=== PATIENT | male | born 1970 | race Caucasian/White ===

== ENCOUNTER → 2022-02-05 | Outpatient (CLI) | payer MEDICAID ==
--- NOTE | 2022-02-05 10:34 | CT ---
EXAMINATION TYPE: CT right knee - [facility] Protocol DATE OF EXAM: 02/05/2022 HISTORY: Pre op planning CT DLP: 519.4 mGycm TECHNIQUE- CT of the right knee is performed as preprocedural planning. COMPARISON- none FINDINGS- There is hypertrophic arthropathy involving the knee joint with spurring and narrowing of joint space s. No erosive changes are seen. A most marked findings are seen involving the medial compartment of k nee joint in a pattern suggestive of osteoarthritis. There is an intraosseous lesion of the proximal diaphysis of the tibia measuring 1.8 cm. Mild superior narrowing of the hip joint noted. No erosive c hanges. Ankle mortise appears symmetric. IMPRESSION: 1. Osteoarthritis of the knee. 2. There is a intraosseous 1.8 cm lesion in the proximal diaphysis of the tibia recommend follow-up b one scan.
== END | disposition home or self-care (01) ==
LOC: RADCTMAIN 09:38
PROVIDERS: ATTEND Orthopaedic Surgery
DX: M17.11 Unilateral primary osteoarthritis, right knee (principal); M89.8X6 Other specified disorders of bone, lower leg

== ENCOUNTER → 2022-02-28 | Outpatient (CLI) | payer MEDICAID ==
[2022-02-28 11:30] LABS: INR 0.9 (<1.2); Partial Thromboplastin Time 25.5 sec (22.0-30.0); Prothrombin Time 9.6 sec (9.0-12.0)
[2022-02-28 15:08] LABS: HCT 43.7 % (39.6-50.0); HGB 14.6 g/dL (13.0-17.0); MCH 29.7 pg (27.0-32.0); MCHC 33.4 g/dL (32.0-37.0); MCV 88.8 fL (80.0-97.0); Mean Platelet Volume 11.7 fL (9.5-12.2); NRBC Per 100 WBC 0 /100 WBCS (0.0-0.0); Platelet Count 166 X 10*3/uL (140-440); RBC 4.92 X 10*6/uL (4.40-5.60); RDW 13.2 % (11.5-14.5); WBC 8.03 X 10*3/uL (4.50-10.00)
[2022-02-28 17:01] LABS: Appearance,Urine Clear (Clear); Bilirubin,Urine Negative (Negative); Blood,Urine Negative (Negative); Color,Urine Yellow (Yellow); Ketones,Urine Negative (Negative); Nitrite,Urine Negative (Negative); PH, Urine 5.5 (5.0-8.0); Specific Gravity,Urine 1.011 (1.001-1.030); Urobilinogen,Urine 0.2 (0.2,1.0)
[2022-02-28 17:24] LABS: ALT 44 U/L (10-49); AST 23 U/L (14-35); African American GFR (CKD) 118.4 (60.0-200.0); Albumin 4.4 g/dL (3.8-4.9); Albumin/Globulin Ratio 1.62 (1.60-3.17); Alkaline Phosphatase 53 U/L (41-126); BUN/Creat Ratio 12.88 Ratio (12.00-20.00); Calcium 9.1 mg/dL (8.7-10.3); Carbon Dioxide 23.8 mmol/L (20.0-27.5); Chloride 104 mmol/L (96-109); Globulin 2.7 g/dL (1.6-3.3); Glucose 98 mg/dL (70-110); Non-African American GFR(CKD) 102.1 (60.0-200.0); Potassium 4.5 mmol/L (3.5-5.5); Sodium 138 mmol/L (135-145); Total Bilirubin <0.15 mg/dL (0.30-1.20); Total Protein 7.1 g/dL (6.2-8.2)
== END | disposition home or self-care (01) ==
LOC: LABWHC1 09:57
PROVIDERS: ATTEND Orthopaedic Surgery
DX: Z01.818 Encounter for other preprocedural examination (principal); I44.4 Left anterior fascicular block; M17.11 Unilateral primary osteoarthritis, right knee; R94.31 Abnormal electrocardiogram [ECG] [EKG]
CPT/HCPCS: 36415; 80053; 81003; 85027; 85610; 85730; 87070; 93005

== ENCOUNTER 2022-03-08 05:35 | Day surgery (SDC) | payer MEDICAID ==
[2022-03-05 11:49] VITALS: BMI 30.1
[~2022-03-08 05:35] MED LIST: ROPIVACAINE 246.25 MG, EPINEPHrine 0.5 MG, KETOROLAC (30 mg/mL) 30 MG, cloNIDine HCL/PF... MISCELLANE PRN; ROPIVACAINE/EPI/CLONIDINE/KET 50 ML SYRINGE MISCELLANE PRN; TRANEXAMIC ACID IN NACL,ISO-OS 1,000 MG in SALINE 1 100ML.BAG IVPB PRN; VANCOMYCIN 1,500 MG in SODIUM CHLORIDE 0.9% 500 ML 500 ML IVPB PRN
[2022-03-08] MEDS ORDERED: HYDROmorphone 0.5 MG/0.5 ML SYRINGE IVP PRN (05:43)
[2022-03-08] MEDS ORDERED: LACTATED RINGERS 1,000 ML IV SCH (05:43)
[2022-03-08] MEDS ORDERED: DEXAMETHASONE SOD PHOSPHATE 4 MG/ML 1 ML VIAL IV ONE (05:43)
[2022-03-08] MEDS ORDERED: ONDANSETRON 4 MG/2 ML VIAL IVP ONE (05:43)
[2022-03-08] MEDS ORDERED: SCOPOLAMINE 1 MG/72 HR PATCH TRANSDERM ONE (05:43)
[2022-03-08] MEDS ORDERED: DOCUSATE 100 MG CAP PO PRN (06:00)
[2022-03-08] MEDS ORDERED: ACETAMINOPHEN TAB 500 MG TAB PO PRN (06:00)
[2022-03-08] MEDS ORDERED: KETOROLAC 15 MG/ML 1 ML VIAL IVP PRN (06:00)
[2022-03-08] MEDS ORDERED: oxyCODONE ER 10 MG TAB.ER.12H PO PRN (06:00)
[2022-03-08] MEDS ORDERED: ONDANSETRON 4 MG/2 ML VIAL IVP PRN (06:00)
[2022-03-08] MEDS ORDERED: DEXAMETHASONE SOD PHOSPHATE 10 MG/ML 1 ML VIAL IV PRN (06:00)
[2022-03-08] MEDS ORDERED: FAMOTIDINE 20 MG/2 ML VIAL IVP PRN (06:00)
[2022-03-08] MEDS ORDERED: LIDOCAINE 1% (10MG/ML) FOR IV START INTRADERMA ONE (07:01)
[2022-03-08] MEDS ORDERED: MIDAZOLAM 2 MG/2 ML VIAL IV ONE (07:12)
[2022-03-08] MEDS ORDERED: ROPIVACAINE 5 MG/ML 30 ML VIAL ONE ×2 (07:24)
[2022-03-08] MEDS ORDERED: PHENYLEPHRINE-0.9% NACL SYG 1,000 MCG/10 ML SYRINGE ONE (07:24)
[2022-03-08] MEDS ORDERED: ePHEDrine 50 MG/ML 1 ML VIAL ONE (07:24)
[2022-03-08] MEDS ORDERED: TRANEXAMIC ACID IN NACL,ISO-OS 1,000 MG/100 ML BAG ONE (07:24)
[2022-03-08] MEDS ORDERED: DEXAMETHASONE SOD PHOSPHATE 4 MG/ML 1 ML VIAL ONE ×2 (07:24)
[2022-03-08] MEDS ORDERED: MIDAZOLAM 2 MG/2 ML VIAL ONE (07:24)
[2022-03-08] MEDS ORDERED: fentaNYL (PF) 50 MCG/ML 2 ML AMP ONE (07:24)
[2022-03-08] MEDS ORDERED: GLYCOPYRROLATE 0.2 MG/ML 2 ML VIAL ONE (07:24)
[2022-03-08] MEDS ORDERED: ROCURONIUM 10 MG/ML (5 ML VIAL) IV ONE (07:24)
[2022-03-08] MEDS ORDERED: SODIUM CHLORIDE 0.9% (PF) 10 ML VIAL ONE (07:24)
[2022-03-08] MEDS ORDERED: SUCCINYLCHOLINE CHLORIDE 200 MG/10 ML VIAL IV ONE (07:24)
[2022-03-08] MEDS ORDERED: NEOSTIGMINE 1 MG/ML 10 ML VIAL ONE (07:24)
[2022-03-08] MEDS ORDERED: PROPOFOL 10 MG/ML 20 ML VIAL IV ONE (07:24)
[2022-03-08] MEDS ORDERED: LIDOCAINE 2% INJ 20 MG/ML (2 ML VIAL) ONE (07:24)
[2022-03-08] MEDS ORDERED: SODIUM CHLORIDE 0.9% 100 ML with ceFAZolin 2 GM IV ONE ×2 (08:00)
[2022-03-08 09:56] VITALS: TEMP 97.1
[2022-03-08 10:02] VITALS: RESP 16
--- NOTE | 2022-03-08 10:05 | P.OP ---
Date of Procedure: 03/08/22 Preoperative Diagnosis: Right knee medial compartment arthritis Postoperative Diagnosis: Same Procedure(s) Performed: Right knee medial unicompartmental arthroplasty Implants: 1. [place] JUSTIN Restoris MCK Size #4 Femur 2. [place] JUSTIN Restoris MCK Size #4 Tibia 3. [place] Justin X3 Uni Poly Size #4, 8-mm poly Anesthesia: GETA, regional Surgeon: Jay Jiang Electrolysis Operator #1: Yeny Jasso Estimated Blood Loss (ml): 50 Pathology: none sent (Routine gross and/or histopathologic evaluation by a pathologist is not indicated. X-ray and intraoperative findings consistent with osteoarthritis) Condition: stable Disposition: PACU Indications for Procedure: I've and following the patient for his right knee. He failed nonsurgical treatment and requested proceeding with surgery. He had isolated arthritis on his x-rays in the medial compartment and when asked to isolate his pain he he pointed to the medial compartment of his knee. I recommended a medial unicompartmental arthroplasty. We discussed the pros and cons of this. After our discussion we also discussed the possibility of converting to a total knee replacement should he have arthritis diffusely throughout the knee intraoperatively. I met with the patient preoperatively in the office setting and discussed treatment of their symptomatic knee arthritis. They failed a long course of nonsurgical treatment and elected to proceed with an elective partial knee replacement. I discussed the potential risks and complications at length and gave them ample time to ask questions. Risks discussed included: risks from anesthesia, superficial site surgical infection, acute and/or chronic periprosthetic joint infection, delayed wound healing, drainage, wound necrosis, instability, stiffness, stiffness requiring manipulation and/or revision surgery, damage to local blood vessels or nerves, aseptic loosening of the implants, extensor mechanism issues including disruption, patellar maltracking, avascular necrosis etc., continued or worsened knee pain, progression of arthritis, generalized dissatisfaction with surgical outcome, need for revision surgery, an inability to regain preinjury level of function, DVT, PE, other medical complications, and possibly loss of life or limb. The patient voiced their understanding that while these are the most common complications other less common complications are possible. They provided both their verbal and wri tten consent to go forward with surgery. Operative Findings: Full-thickness cartilage loss in the medial femoral condyle and tibial plateau with peripheral osteophytes. No cartilage loss with full-thickness normal- appearing cartilage on the undersurface of the patella, trochlea of the femur, and lateral compartment. Description of Procedure: The patient was identified in preoperative holding and the correct operative extremity was verified and marked with a marker. I reviewed the consent form with the patient at length. All of their questions were answered. The patient was given a block by anesthesia. They were then brought back to the operating room. They were transferred onto the operating room table where a general anesthetic, preoperative antibiotics, and tranexamic acid were administered by anesthesia. A tourniquet was applied to the proximal aspect of the operative extremity. The contralateral extremity was padded under the heel and secured to the operating room table with a nonsterile blue towel and tape. The ipsilateral arm was carefully draped across the patient's chest and secured with a pillow and foam. A post was applied over the lateral aspect of the ipsilateral thigh and a bolster was placed under the ipsilateral foot. I verified that the operative extremity was stable and the knee was flexed to 90. The operative extremity was then placed in a leg beard, nonsterile drapes were applied, and the extremity was prepped and draped sterilely in the standard sterile fashion. Prior to starting surgery timeout was performed identifying the correct patient, operative extremity, and procedure. The leg was then elevated, exsanguinated with an Esmarch bandage, and the tourniquet was inflated. An anterior midline incision was made sharply with a scalpel. Once I had dissected deep to the superficial fascial layer medial and lateral flaps were elevated. A medial parapatellar arthrotomy was created. Upon opening the knee joint there isolated full-thickness cartilage loss in the medial compartment of the knee both on the femur and tibia. The remaining knee was free of any arthritic changes. The ACL was seen to be intact. The anterior horn of the medial meniscus were sharply released and a medial release was performed around the posterior medial corner of the knee to facilitate retractor placement. A small portion of the fat pad was removed just for visualization. 4 mm pins were then placed within the incision in the medial distal femur and proximal tibia. Arrays were applied to the pins and I verified they were completely tightened. The knee was then registered with the [id number] robot and manipulations in implant position were made to balance the knee and opitmize implant position. Using the Justin robotic saw and ameya all cuts were made in accordance with our plan. The knee was thoroughly irrigated and remnants of the medial meniscus were removed with electrocautery. Local anesthetic was then infiltrated around the joint capsule. Trial implants were then placed within the knee. Range of motion and collateral ligament tension was then evaluated. All trial components were then removed from the knee. The knee was thoroughly irrigated with pulsatile lavage. Cement was prepared via vacuum mixing in a bowl on the back table. I then hand pressurized cement into the femur and tibia and placed the implants beginning with the tibial base tray and poly liner, and femoral component. All extruded cement was removed including from the pin sites. Once the cement had hardened the knee was evaluated one final time with the final polyethylene liner in place. The knee had full extension and flexion and felt stable to varus and valgus stress throughout the arc of motion. The tourniquet was released and with the tourniquet down the patella tracked midline. All bleeders were controlled with electrocautery. The knee was thoroughly irrigated using 3 L of sterile saline and pulsatile lavage. The extensor mechanism was then reapproximated using pop off Vicryl sutures followed by a running barbed suture. The knee was then closed in layers with a 0 strata fix for the deep fascial layer, 2-0 strata fix for the superficial subcutaneous layer and Monocryl and Steri-Strips for the skin. A sterile dressing was applied. I verified that all instrument, sponge, and sharp counts were correct. The patient was then transferred off the operating room table, extubated, and brought to recovery having tolerated the procedure well. Yeny Jasso PA-C was required as a skilled assistant facility manager due to the complexity of the procedure for patient positioning, draping, retraction, placement of hardware, and closure of wound. PLAN: The patient can weight-bear as tolerated on the operative extremity. DVT prophylaxis with aspirin 81 mg twice a day based on preoperative risk stratification. The patient is going to discharge home as an outpatient. Follow-up in the office in 2 weeks for wound check and x-rays of the knee including an AP and lateral.
--- NOTE | 2022-03-08 10:12 | XR ---
EXAMINATION TYPE: XR knee limited RT DATE OF EXAM: 03/08/2022 10:08 AM INDICATION: Patient age:Male; 51 years old; Reason for study: post op; [facility]. COMPARISON: CT right knee 02/05/2022. TECHNIQUE: The Right knee(s) was examined in frontal and crosstable lateral projections. FINDINGS: Postsurgical changes from hemiarthroplasty involving the medial tibiofemoral joint. Hardw are appears intact with appropriate alignment. There is associated soft tissue edema and gas. Mild aria int space narrowing of the lateral tibiofemoral joint space. IMPRESSION: Postsurgical changes from hemiarthroplasty involving the medial tibiofemoral joint. Hardware appears intact with appropriate alignment.
[2022-03-08] MEDS ORDERED: HYDROcodone/APAP 5-325MG 1 EACH TAB ONE (10:41)
[2022-03-08] MEDS ORDERED: HYDROcodone/APAP 5-325MG 1 EACH TAB PO ONE (10:43)
[2022-03-08] MEDS ORDERED: LACTATED RINGERS 1,000 ML IV ONE (11:19)
[2022-03-08 12:00] VITALS: BP 112/64; PULSE 86
--- NOTE | 2022-03-10 19:10 | P.ANPRN ---
Procedure Note - Anesthesia - Nerve Block Performed Right Erector Spinae Single Time Out Performed: Yes Date of Procedure: 03/08/22 Procedure Start Time: 07:12 Procedure Stop Time: 07:15 Location of Patient: PreOp Indication: Acute Post-Operative Pain, Requested by Surgeon Sedation Type: Sedate with meaningful contact maintained Preparation: Sterile Prep Position: Prone Needle Types: Pajunk Needle Gauge: 21 Ultrasound used to visualize needle placement: Yes Ultrasound used to observe medication spread: Yes Blood Aspirated: No Pain Paresthesia on Injection Noted: No Resistance on Injection: Normal Image Stored and Saved: Yes Events: Uneventful and Well Tolerated (ropi .5% 15cc plus ns 10cc plus dexamethasone 4mg)
--- NOTE | 2022-03-10 19:12 | P.ANPRN ---
Procedure Note - Anesthesia - Nerve Block Performed Right Adductor Canal Single Time Out Performed: Yes Date of Procedure: 03/08/22 Procedure Start Time: 07:12 Procedure Stop Time: 07:15 Location of Patient: PreOp Indication: Acute Post-Operative Pain, Requested by Surgeon Sedation Type: Sedate with meaningful contact maintained Preparation: Sterile Prep Position: Supine Needle Types: Pajunk Needle Gauge: 21 Ultrasound used to visualize needle placement: Yes Ultrasound used to observe medication spread: Yes Blood Aspirated: No Pain Paresthesia on Injection Noted: No Resistance on Injection: Normal Image Stored and Saved: Yes Events: Uneventful and Well Tolerated (Ropivacaine 0.5% 20 mL plus dexamethasone 4 mg)
--- NOTE | 2022-03-10 19:14 | P.ANPRN ---
Procedure Note - Anesthesia - Nerve Block Performed Right Ameliack Single Time Out Performed: Yes Date of Procedure: 03/08/22 Procedure Start Time: 07:16 Procedure Stop Time: 07:18 Location of Patient: PreOp Indication: Acute Post-Operative Pain, Requested by Surgeon Sedation Type: Sedate with meaningful contact maintained Preparation: Sterile Prep Position: Supine Needle Types: Pajunk Needle Gauge: 21 Ultrasound used to visualize needle placement: Yes Ultrasound used to observe medication spread: Yes Blood Aspirated: No Pain Paresthesia on Injection Noted: No Resistance on Injection: Normal Image Stored and Saved: Yes Events: Uneventful and Well Tolerated (Ropivacaine 0.5% 20 mL plusDexamethasone 4 mg)
== END 2022-03-08 12:40 | disposition home health service (06) ==
LOC: OR 05:35
PROVIDERS: ATTEND Orthopaedic Surgery
DX: M17.11 Unilateral primary osteoarthritis, right knee (principal); M25.761 Osteophyte, right knee; K21.9 Gastro-esophageal reflux disease without esophagitis; G89.18 Other acute postprocedural pain; Z88.0 Allergy status to penicillin; Z87.891 Personal history of nicotine dependence
CPT/HCPCS: 97530; 97161; 64447; 64461; 64999; 76942; 73560; C1776; C1713; J2250; J3370; J0330; J1100 ×2; J2710; J0690; J2405; J3010; J2795; J1885; J2370; J2704; J2001

== ENCOUNTER 2022-04-05 17:30 | Observation (INO) | payer MEDICAID ==
[2022-04-05] MEDS ORDERED: VANCOMYCIN IV PER PHARMACY 1 EACH MISC MISCELLANE PRN (17:55)
[2022-04-05] MEDS ORDERED: VANCOMYCIN 1,500 MG in SODIUM CHLORIDE 0.9% 500 ML 500 ML IVPB STA (18:08)
[2022-04-05 20:32] LABS: Basophils # (A) 0.1 k/uL (0-0.2); Basophils % (A) 1 %; Eosinophils # (A) 0.3 k/uL (0-0.7); Eosinophils % (A) 4 %; HGB 14.9 gm/dL (13.0-17.5); Lymphocytes # (A) 3.4 k/uL (1.0-4.8); Lymphocytes % (A) 37 %; MCH 30.3 pg (25.0-35.0); MCHC 34.6 g/dL (31.0-37.0); MCV 87.5 fL (80.0-100.0); Mean Platelet Volume 9.8; Monocytes # (A) 0.5 k/uL (0-1.0); Monocytes % (A) 6 %; Neutrophils # (A) 4.8 k/uL (1.3-7.7); Neutrophils % (A) 52 %; Platelet Count 148 k/uL (150-450); RBC 4.91 m/uL (4.30-5.90); RDW 13.2 % (11.5-15.5); WBC 9.2 k/uL (3.8-10.6)
[2022-04-05 20:48] LABS: ALT 51 U/L (4-49); AST 29 U/L (17-59); African American GFR (CKD) >90 (>60 ml/min/1.73 sqM); Albumin 4.5 g/dL (3.5-5.0); Alkaline Phosphatase 43 U/L (38-126); Anion Gap 8 mmol/L; Blood Urea Nitrogen 12 mg/dL (9-20); C Reactive Protein 1.4 mg/dL (<1.0); Calcium 9.1 mg/dL (8.4-10.2); Carbon Dioxide 25 mmol/L (22-30); Chloride 109 mmol/L (98-107); Glucose 91 mg/dL (74-99); Non-African American GFR(CKD) >90 (>60 ml/min/1.73 sqM); Potassium 4.4 mmol/L (3.5-5.1); Sodium 142 mmol/L (137-145); Total Bilirubin 0.3 mg/dL (0.2-1.3); Total Protein 7.4 g/dL (6.3-8.2)
[2022-04-05 22:47] LABS: Erythrocyte Sedimentation Rate 14 mm/hr (0-15)
--- NOTE | 2022-04-05 22:56 | ED ---
Extremity Problem HPI - General Chief complaint: Extremity Problem,Nontraumatic Stated complaint: sent by pcp for rt knee surgery Source: patient, family Mode of arrival: ambulatory Limitations: no limitations - History of Present Illness Initial comments: 51-year-old male with right knee partial arthroplasty who presents to the emergency department under the direction of Dr. Jiang. He had surgery on March 08. Reports that for the past week he has had some redness and swelling to the anterior knee with redness around his incision. No dehiscence. He went to the office today where Dr. Jiang aspirated his knee. Recommended that the patient come to the emergency department for evaluation of prepatellar cellulitis versus joint sepsis. Patient able to ambulate and range of motion of the knee without significant pain. He denies any chest pain or shortness of b reath. No fevers. No pustular drainage from the site. No other alleviating, precipitating or modifying factors - Related Data Home Medications Medication Instructions Recorded Confirmed HYDROcodone/APAP 5-325MG [[place] 1 tab PO Q6HR PRN 04/05/22 04/05/22 5-325] Ibuprofen [Motrin] 800 mg PO Q8H PRN 04/05/22 04/05/22 Previous Rx's Medication Instructions Recorded Aspirin 81 mg PO BID 30 Days #60 tab 03/08/22 Diclofenac Sodium [Voltaren] 75 mg PO BID 30 Days #60 tab 03/08/22 Docusate [Colace] 100 mg PO BID #60 capsule 03/08/22 Omeprazole 40 mg PO DAILY 30 Days #30 cap 03/08/22 Allergies Allergy/AdvReac Type Severity Reaction Status Date / Time Penicillins Allergy Rash/Hives Verified 04/05/22 22:08 meloxicam AdvReac Hallucinati Verified 04/05/22 22:08 ons Review of Systems ROS Statement: Those systems with pertinent positive or pertinent negative responses have been documented in the HPI. ROS Other: All systems not noted in ROS Statement are negative. Past Medical History Past Medical History: Osteoarthritis (OA) History of Any Multi-Drug Resistant Organisms: None Reported Past Surgical History: Joint Replacement, Orthopedic Surgery Additional Past Surgical History / Comment(s): RT KNEE SCOPE. EYE SURGERY BABY Past Anesthesia/Blood Transfusion Reactions: No Reported Reaction Past Psychological History: No Psychological Hx Reported Smoking Status: Former smoker - Past Family History Mother Family Medical History: No Reported History General Exam Limitations: no limitations Course Vital Signs 04/05/22 18:07 Temperature 97.9 F Pulse Rate 84 Respiratory 20 Rate Blood Pressure 171/90 Medical Decision Making - Medical Decision Making Was pt. sent in by a medical professional or institution? @ -[by JOLYNN Smith, ENROBING MACHINE FEEDER, urgent care, hospital, or skilled nursing] Did you speak to anyone other than the patient for history? @ -[EMS, parent, family, police, friend?] Did you review nursing and triage notes? @ -[agree or disagree, why?] Were old charts reviewed? @ -[outside hosp., previous admissions, EMS record, old EKG, old radiological studies, urgent care reports/EKGs, skilled nursing records?] Differential Diagnosis? @ -[chest pain, altered mental status abdominal pain women, abdominal pain men, vaginal bleeding, weakness, fever, dyspnea, syncope, headache, dizziness, GI bleed, back pain, seizure] EKG interpreted by me (3pts min.)? @ -[none] X-rays interpreted by me (1pt min.)? @ -[none] CT interpreted by me (1pt min.)? @ -[none] U/S interpreted by me (1pt. min.)? @ -[none] What testing was considered but not performed? (CT, X-rays, U/S, labs)? Why? @ [CT, X-rays, U/S, labs? Why?] What meds were considered but not given? Why? @ -[none] Did you discuss the management of the patient with other professionals? @ -[professionals i.e. , JOLYNN, ENROBING MACHINE FEEDER, Lab, RT, Psych Nurse, Process Mold Technician, Lock And Dam Equipment Repairer, Teacher, Aircraft Engine Mechanic Supervisor, telephonic nurse case manager? Give summary] Did you reconcile home meds? @ -[none] Was smoking cessation discussed for >3mins.? @ -[none] Was critical care preformed (if so, how long)? @ -[none] Were there social determinants of health that impacted care today? How? (Homelessness, low income, unemployed, alcoholism, drug addiction, transportation, low edu. Level, literacy, decrease access to med. care, intermediate, rehab)? @ -[Homelessness, low income, unemployed, alcoholism, drug addiction, transportation, low edu. Level, literacy, decrease access to med. care, intermediate, rehab?] Was there de-escalation of care discussed even if they declined? (Discuss DNR or withdrawal of care, Hospice)? @ -[Discuss DNR or withdrawal of care, Hospice?] What co-morbidities impacted this encounter? (DM, HTN, Smoking, COPD, CAD, Cancer, CVA, Hep., AIDS, mental health diagnosis, sleep apnea, morbid obesity)? @ -[DM, HTN, Smoking, COPD, CAD, Cancer, CVA, Hep., AIDS, mental health diagnosis, sleep apnea, morbid obesity?] Was patient admitted / discharged? @Upon arrival the patient was placed into room 11. A thorough history and physical exam was performed. Laboratory studies are conducted. He does arrive with his joint aspiration which is sent for cell count and culture. Patient will be admitted to Dr. Jiang. Blood cultures obtained. Patient was given Rocephin and Vanco. Currently awaiting a bed on the floor in stable condition Undiagnosed new problem with uncertain prognosis? @ -[none] Drug Therapy requiring intensive monitoring for toxicity (Heparin, Nitro, Insulin, Cardizem)? @ -[none] Were any procedures done? @ -[none] Diagnosis/symptom? @ -[default] Acute, or Chronic, or Acute on Chronic? @ -[default] Uncomplicated (without systemic symptoms) or Complicated (systemic symptoms)? @ -[default] Side effects of treatment? @ -[none] Exacerbation, Progression, or Severe Exacerbation] @ -[no] Poses a threat to life or bodily function? @ -[no] - Lab Data Result diagrams: 04/05/22 20:07 04/05/22 20:07 Lab Results 04/05/22 04/05/22 04/05/22 Range/Units 20:07 20:07 20:07 WBC 9.2 (3.8-10.6) k/uL RBC 4.91 (4.30-5.90) m/uL Hgb 14.9 (13.0-17.5) gm/dL Hct 43.0 (39.0-53.0) % MCV 87.5 (80.0-100.0) fL MCH 30.3 (25.0-35.0) pg MCHC 34.6 (31.0-37.0) g/dL RDW 13.2 (11.5-15.5) % Plt Count 148 L (150-450) k/uL MPV 9.8 Neutrophils % 52 % Lymphocytes % 37 % Monocytes % 6 % Eosinophils % 4 % Basophils % 1 % Neutrophils # 4.8 (1.3-7.7) k/uL Lymphocytes # 3.4 (1.0-4.8) k/uL Monocytes # 0.5 (0-1.0) k/uL Eosinophils # 0.3 (0-0.7) k/uL Basophils # 0.1 (0-0.2) k/uL ESR 14 (0-15) mm/hr D-Dimer (<0.60) mg/L FEU Sodium 142 (137-145) mmol/L Potassium 4.4 (3.5-5.1) mmol/L Chloride 109 H (98-107) mmol/L Carbon Dioxide 25 (22-30) mmol/L Anion Gap 8 mmol/L BUN 12 (9-20) mg/dL Creatinine 0.88 (0.66-1.25) mg/dL Est GFR (CKD-EPI)AfAm >90 (>60 ml/min/1.73 sqM) Est GFR (CKD-EPI)NonAf >90 (>60 ml/min/1.73 sqM) Glucose 91 (74-99) mg/dL Plasma Lactic Acid Salbador 1.1 (0.7-2.0) mmol/L Calcium 9.1 (8.4-10.2) mg/dL Total Bilirubin 0.3 (0.2-1.3) mg/dL AST 29 (17-59) U/L ALT 51 H (4-49) U/L Alkaline Phosphatase 43 (38-126) U/L C-Reactive Protein 1.4 H (<1.0) mg/dL Total Protein 7.4 (6.3-8.2) g/dL Albumin 4.5 (3.5-5.0) g/dL 04/05/22 Range/Units 20:07 WBC (3.8-10.6) k/uL RBC (4.30-5.90) m/uL Hgb (13.0-17.5) gm/dL Hct (39.0-53.0) % MCV (80.0-100.0) fL MCH (25.0-35.0) pg MCHC (31.0-37.0) g/dL RDW (11.5-15.5) % Plt Count (150-450) k/uL MPV Neutrophils % % Lymphocytes % % Monocytes % % Eosinophils % % Basophils % % Neutrophils # (1.3-7.7) k/uL Lymphocytes # (1.0-4.8) k/uL Monocytes # (0-1.0) k/uL Eosinophils # (0-0.7) k/uL Basophils # (0-0.2) k/uL ESR (0-15) mm/hr D-Dimer 1.30 H (<0.60) mg/L FEU Sodium (137-145) mmol/L Potassium (3.5-5.1) mmol/L Chloride (98-107) mmol/L Carbon Dioxide (22-30) mmol/L Anion Gap mmol/L BUN (9-20) mg/dL Creatinine (0.66-1.25) mg/dL Est GFR (CKD-EPI)AfAm (>60 ml/min/1.73 sqM) Est GFR (CKD-EPI)NonAf (>60 ml/min/1.73 sqM) Glucose (74-99) mg/dL Plasma Lactic Acid Salbador (0.7-2.0) mmol/L Calcium (8.4-10.2) mg/dL Total Bilirubin (0.2-1.3) mg/dL AST (17-59) U/L ALT (4-49) U/L Alkaline Phosphatase (38-126) U/L C-Reactive Protein (<1.0) mg/dL Total Protein (6.3-8.2) g/dL Albumin (3.5-5.0) g/dL Disposition Clinical Impression: Cellulitis of right knee Disposition: ADMITTED IP TO THIS [facility] Condition: Stable Is patient prescribed a controlled substance at d/c from ED?: No Time of Disposition: 22:56 Decision to Admit Reason: Admit from EC Decision Date: 04/05/22 Decision Time: 22:56
[2022-04-05] MEDS ORDERED: NALOXONE 0.4 MG/ML 1 ML VIAL IV PRN (22:57)
[2022-04-05] MEDS ORDERED: ACETAMINOPHEN TAB 325 MG TAB PO PRN (22:57)
[2022-04-06] MEDS: VANCOMYCIN 1,500 MG in SODIUM CHLORIDE 0.9% 500 ML 500 ML IVPB SCH ×2 (04:40→13:45)
--- NOTE | 2022-04-06 06:34 | XR ---
EXAMINATION TYPE: XR knee limited RT DATE OF EXAM: 04/06/2022 CLINICAL HISTORY: Postoperative pain. TECHNIQUE: Frontal and lateral views of the right knee are obtained. COMPARISON: Prior right knee x-ray March 08, 2022. FINDINGS: There is no acute fracture/dislocation evident in right knee. Surgical changes from right knee ELAINE-plasty procedure is redemonstrated and satisfactory in position. Mild to moderate narrowing patellofemoral compartment is again seen. Mild to moderate diffuse subcutaneous edema anteriorly rem ains present. IMPRESSION: As above. No significant change from prior.
--- NOTE | 2022-04-06 08:00 | P.HPOR ---
History of Present Illness H&P Date: 04/06/22 This patient is a 51-year-old male who is status post right medial unicompartmental knee arthroplasty on 03/08/[address] Jiang. The patient presented to the office yesterday with complaints about a week of redness, swelling, drainage from his incision. Dr. Jiang evaluated the patient yesterday and advised patient presented to the emergency department to be admitted with plans for surgical I&D of the right knee. Patient's knee was aspirated in the office yesterday. No additional complaints at this time. Past Medical History Past Medical History: Osteoarthritis (OA) History of Any Multi-Drug Resistant Organisms: None Reported Past Surgical History: Joint Replacement, Orthopedic Surgery Additional Past Surgical History / Comment(s): RT KNEE SCOPE. EYE SURGERY BABY Past Anesthesia/Blood Transfusion Reactions: No Reported Reaction Past Psychological History: No Psychological Hx Reported Smoking Status: Former smoker - Past Family History Mother Family Medical History: No Reported History Medications and Allergies Home Medications Medication Instructions Recorded Confirmed Type Aspirin 81 mg PO BID 30 Days #60 tab 03/08/22 04/05/22 Rx Diclofenac Sodium [Voltaren] 75 mg PO BID 30 Days #60 tab 03/08/22 04/05/22 Rx Docusate [Colace] 100 mg PO BID #60 capsule 03/08/22 04/05/22 Rx Omeprazole 40 mg PO DAILY 30 Days #30 cap 03/08/22 04/05/22 Rx HYDROcodone/APAP 5-325MG [[place] 1 tab PO Q6HR PRN 04/05/22 04/05/22 History 5-325] Ibuprofen [Motrin] 800 mg PO Q8H PRN 04/05/22 04/05/22 History Allergies Allergy/AdvReac Type Severity Reaction Status Date / Time Penicillins Allergy Rash/Hives Verified 04/05/22 22:08 meloxicam AdvReac Hallucinati Verified 04/05/22 22:08 ons Physical Examination Patient examined by Dr. Jiang. On inspection of the right anterior knee, there is a healing incision with mild surrounding erythema. No active drainage. There is superficial breakdown in the middle third and distal third of the incision. No exposed tendon or fascia. No fluctuance. There is a moderate effusion. There is minimal pain with passive range of motion of the knee. Motor and sensory function intact RLE. RLE warm and well perfused. Results - Labs Labs: Abnormal Lab Results - Last 24 Hours (Table) 04/05/22 04/05/22 04/05/22 Range/Units 20:07 20:07 20:07 Plt Count 148 L (150-450) k/uL D-Dimer 1.30 H (<0.60) mg/L FEU Chloride 109 H (98-107) mmol/L ALT 51 H (4-49) U/L C-Reactive Protein 1.4 H (<1.0) mg/dL H & H 04/05/22 Range/Units 20:07 Hgb 14.9 (13.0-17.5) gm/dL Hct 43.0 (39.0-53.0) % Result Diagrams: 04/05/22 20:07 04/05/22 20:07 Assessment and Plan Assessment: Status-post right unicompartmental knee arthroplasty on 03/08/22. Cellulitis Rule-out rick-prosthetic joint infection Plan: - Recommend I&D of the right knee with wound vac application today. Further recommendations pending surgical findings and aspiration results.
[2022-04-06] MEDS ORDERED: LACTATED RINGERS 1,000 ML IV ONE ×2 (08:06→08:40)
[2022-04-06] MEDS ORDERED: PROPOFOL 10 MG/ML 20 ML VIAL IV ONE (08:06)
[2022-04-06] MEDS ORDERED: SUCCINYLCHOLINE CHLORIDE 200 MG/10 ML VIAL IV ONE (08:06)
[2022-04-06] MEDS ORDERED: MIDAZOLAM 2 MG/2 ML VIAL ONE (08:06)
[2022-04-06] MEDS ORDERED: fentaNYL (PF) 50 MCG/ML 2 ML AMP ONE (08:06)
[2022-04-06] MEDS ORDERED: SODIUM CHLORIDE 0.9% 50 ML with ceFAZolin 2,000 MG IV ONE ×2 (08:30)
[2022-04-06] MEDS ORDERED: HYDROmorphone 0.5 MG/0.5 ML SYRINGE IVP PRN ×2 (09:12)
[2022-04-06] MEDS ORDERED: ONDANSETRON 4 MG/2 ML VIAL IVP PRN (09:12)
[2022-04-06] MEDS ORDERED: hydrOXYzine pamoate 25 MG CAP PO PRN (09:12)
[2022-04-06] MEDS ORDERED: HYDROmorphone 1 MG/ML 1 ML SYRINGE IVP PRN (09:12)
[2022-04-06] MEDS ORDERED: HYDROcodone/APAP 5-325MG 1 EACH TAB PO PRN ×2 (09:12)
[2022-04-06] MEDS ORDERED: LACTATED RINGERS 1,000 ML IV SCH (09:15)
[2022-04-06] MEDS ORDERED: HYDROmorphone 0.5 MG/0.5 ML SYRINGE IVP ONE ×3 (09:16→09:35)
--- NOTE | 2022-04-06 09:23 | P.OP ---
Date of Procedure: 04/06/22 Preoperative Diagnosis: 1. History of right unicompartmental knee arthroplasty 4 weeks ago 2. Superficial wound dehiscence 3. History of cigarette smoking, currently not smoking per patient Postoperative Diagnosis: Same Procedure(s) Performed: Superficial right knee irrigation and debridement (excisional debridement of nonviable skin and subcutaneous tissue down to fascia with a scalpel), closure of wound, and application of negative pressure incision over wound VAC right knee (20 cm) Anesthesia: SHADI Surgeon: Jay Jiang Tree Doctor #1: Yeny Jasso Estimated Blood Loss (ml): 10 IV fluids (ml): 500 Pathology: none sent Condition: stable Disposition: PACU Indications for Procedure: The patient is a very pleasant 51-year-old male who is a former smoker and quit prior to having an elective unicompartmental arthroplasty 4 weeks ago. He was doing well until just recently when he developed a superficial wound breakdown and a small amount of drainage from his wounds. He was seen in the office by me yesterday and was found to have superficial breakdown over the middle and distal third of his incision with surrounding erythema but no active drainage. His knee was aspirated and clear red tinged fluid was aspirated. There was no purulence. The cell count on the fluid was 300 nucleated cells with 85% PMNs, well below the threshold of 10,000 nucleated cells being suggestive of early infection. My recommendation to the patient and his was to admit the patient overnight for IV antibiotics and taken to the operating room for scar excision superficial debridement and exploration of his wound. We discussed that if the wound was superficial we would just perform an irrigation and debridement, closure, and wound VAC application, but if the wound tracked down to the joint we are perform a DAIR procedure and polyethylene exchange. The patient and his understand this. They understand the potential risks and complications including continued wound issues, infection of a periprosthetic joint infection, and need for revision. He was strongly encouraged to continue refraining from smoking. Operative Findings: Superficial breakdown of the incision with no extension to the joint. The capsule and retinaculum were intact. Description of Procedure: Patient was identified in preoperative holding and the correct leg was marked with my initials. I reviewed the consent form with the patient. All his questions were answered. The patient was then brought back to the operating room. He was positioned on the or table where general anesthetic and preoperative antibiotics were given. A tourniquet was applied the proximal aspect of the right leg. The left leg was secured to the OR table with foam and tape. The right leg was then prepped and draped in the standard sterile fashion. Prior to starting surgery timeout was performed identifying the correct patient, operative extremity, and procedure. The patient's leg was then elevated, exsanguinated with an Esmarch bandage, and the tourniquet was inflated to 250 mmHg. I began by outlining his prior scar with a surgical pen excising out the areas of superficial dehiscence. Skin incision was made with a scalpel and the open wounds were excised with a scalpel back to healthy bleeding tissue. The superficial fascia was incised. The capsule was found to be intact and there was no evidence of communication or drainage. The wound appeared clean with no purulence. The wound was thoroughly irrigated with 3 L of sterile saline using cystoscopy tubing. The incision was then carefully closed in layers and the skin incision was reinforced with 3-0 nylon mattress sutures. An incisional wound VAC was placed over the incision which measured 20 cm. Web roll and an García wrap were applied over the knee followed by a knee immobilizer. I verified that all instrument, sponge, and sharp counts were correct. The patient was then awoken from his anesthetic, transferred to a gurney, and brought to recovery having tolerated the procedure well. Plan: The patient is going to discharge home later today as an outpatient. He can weight-bear as tolerated on his right leg. I would like to leave the knee immobilizer in place to take tension off of his incision. The García wrap and wound VAC will be left in place. He'll be discharged home on doxycycline for prophylaxis until his incision heals. We will closely follow the fluid cultures. We have also sent a urine and serum nicotine and cotinine level. He was strongly encouraged to continue refraining from smoking. He will follow-up in the office in 1 week for a wound check.
[2022-04-06 12:57] VITALS: RESP 16
[2022-04-06 14:32] VITALS: BP 129/77; PULSE 81; TEMP 98.7
[2022-04-07] MEDS ORDERED: VANCOMYCIN TROUGH DUE 1 EACH MISC MISCELLANE ONE (11:00)
[2022-04-09 08:55] LABS: Cotinine 250.8 ng/mL (<2.0); Nicotine 3.6 ng/mL (<2.0)
--- NOTE | 2022-04-09 12:52 | P.DS ---
Providers Date of admission: 04/05/22 22:58 Expected date of discharge: 04/06/22 Attending physician: Jay Jiang Primary care physician: Joe Covington [facility] Course: LATE ENTRY FROM 04/06/22- This is a 51-year-old male who is status-post right unicompartmental knee arthroplasty about 4 weeks ago. Patient was doing well in the postoperative period until recently, when he presented to the office yesterday with sup erficial wound breakdown and a small amount of drainage. A knee aspiration followed by formal I&D of the right knee was recommended. Patient underwent a superficial right knee irrigation and debridement with wound VAC application on 04/06/22. The procedure was performed without complication or sequelae. Patient will discharge home this afternoon, after receiving 1 dose of postoperative IV antibiotics. He will be discharged home on oral antibiotics. Patient is discharged to rehab today in good condition, pending medical clearance. Patient will follow-up with Dr. Jiang in the office on 04/11/22. patient should leave the wound VAC in place until follow-up in the office. Patient Condition at Discharge: Stable Plan - Discharge Summary New Discharge Prescriptions: New Docusate [Colace] 100 mg PO BID #60 capsule Doxycycline Monohydrate 100 mg PO BID 14 Days #28 cap HYDROcodone/APAP 5-325MG [[place] 5-325] 1 tab PO Q6HR PRN 7 Days #20 tab PRN Reason: Pain No Action Docusate [Colace] 100 mg PO BID #60 capsule Omeprazole 40 mg PO DAILY 30 Days #30 cap Ibuprofen [Motrin] 800 mg PO Q8H PRN PRN Reason: Pain Aspirin 81 mg PO BID 30 Days #60 tab Diclofenac Sodium [Voltaren] 75 mg PO BID 30 Days #60 tab HYDROcodone/APAP 5-325MG [[place] 5-325] 1 tab PO Q6HR PRN PRN Reason: Pain Discharge Medication List Aspirin 81 mg PO BID 30 Days #60 tab 03/08/22 [Rx] Diclofenac Sodium [Voltaren] 75 mg PO BID 30 Days #60 tab 03/08/22 [Rx] Docusate [Colace] 100 mg PO BID #60 capsule 03/08/22 [Rx] Omeprazole 40 mg PO DAILY 30 Days #30 cap 03/08/22 [Rx] HYDROcodone/APAP 5-325MG [[place] 5-325] 1 tab PO Q6HR PRN 04/05/22 [History] Ibuprofen [Motrin] 800 mg PO Q8H PRN 04/05/22 [History] Docusate [Colace] 100 mg PO BID #60 capsule 04/06/22 [Rx] Doxycycline Monohydrate 100 mg PO BID 14 Days #28 cap 04/06/22 [Rx] HYDROcodone/APAP 5-325MG [[place] 5-325] 1 tab PO Q6HR PRN 7 Days #20 tab 04/06/22 [Rx] Follow up Appointment(s)/Referral(s): Joe Covington MD [Primary Care Provider] - 1-2 days Jay Jiang MD [Medical Doctor] - 04/11/22 (Patient to make own follow- up appt. for this 04/11/22) Patient Instructions/Handouts: Doxycycline (By mouth), Hydrocodone/Acetaminophen (By mouth), Laxative, Stool Softeners (By mouth), Knee Immobilizer (DC), Incision and Drainage (DC) Activity/Diet/Wound Care/Special Instructions: Weight bear to tolerance on operative extremity. Keep knee immobilizer in place for 48 hours post-operatively. After 48 hours, may remove knee immobilizer. Keep SIGIFREDO wrap, wound vac in place until follow-up appointment in the office. Take pain medications as needed. Take antibiotics as prescribed. Follow-up at [facility] on 04/11/21. Call the office with any questions or concerns, No driving Discharge Disposition: HOME SELF-CARE
== END 2022-04-06 15:23 | disposition home or self-care (01) ==
LOC: EC 17:30 → 4SSUR 22:58 → 5NMEDONC 04-06 08:14
PROVIDERS: ADMIT Orthopaedic Surgery; ATTEND Orthopaedic Surgery
DX: T81.31XA Disruption of external operation (surgical) wound, not elsewhere classified, initial encounter (principal); L03.115 Cellulitis of right lower limb; M19.90 Unspecified osteoarthritis, unspecified site; Z79.82 Long term (current) use of aspirin; Z79.1 Long term (current) use of non-steroidal anti-inflammatories (NSAID); Z79.899 Other long term (current) drug therapy; Z88.0 Allergy status to penicillin; Z88.6 Allergy status to analgesic agent; Z96.651 Presence of right artificial knee joint; Z98.890 Other specified postprocedural states
CPT/HCPCS: 11043; 13160; 96374; 99284; 36415; 85379; 80053; 85652; 83605; 85025; 86140; 87040; 80323; 73560; G0378 ×3; J2250; J3370 ×2; J0330; J0690 ×2; J0696; J3010; J2704; J1170